=== PATIENT | female | born 1945 | race Hispanic/Latino ===

== ENCOUNTER 2017-04-29 15:15 | Emergency (ER) | payer OTHER, MEDICARE ==
[~2017-04-29 15:15] MED LIST: ADV250 IH; ALBU18HF7 IH; APIX5TAB PO; DEXT1DRO OU; GABA-529 PO; IPRA4AER IH; LANS30CA55 PO; LEFL20TA18 PO; METO50 PO; MONT10TA21 PO; PILO5TAB PO; SIMV40TA59 PO
[2017-04-29 16:05] LABS: BASOPHILS % (AUTO) 0.6 % (0.0-5.0); HEMATOCRIT 36.8 % (36-48); LYMPHOCYTES % (AUTO) 14.6 % (21.0-51.0); MEAN CORPUSCULAR HEMOGLOBIN 29.6 pg (27.0-33.0); MEAN CORPUSCULAR HGB CONC 33.9 g/dL (32.0-36.0); MEAN CORPUSCULAR VOLUME 87.5 fL (79-99); MONOCYTES % (AUTO) 19.7 % (3.0-13.0); NEUTROPHILS % (AUTO) 63.1 % (40.0-77.0); PLATELET COUNT (AUTO) 163 K/uL (130-400); RED CELL DISTRIBUTION WIDTH 14.4 % (11.0-15.5); WHITE BLOOD COUNT (AUTO) 5.3 K/uL (4.8-10.8)
[2017-04-29 16:12] LABS: CREATININE 0.8 mg/dL (0.5-1.5); POTASSIUM 4.2 mmol/L (3.5-5.1)
[2017-04-29] MEDS ORDERED: ACETAMINOPHEN 325 MG TAB ONE (17:46)
[2017-04-29] MEDS ORDERED: BENZONATATE 100 MG CAPSULE PO ONE (18:37)
[2017-04-29] MEDS ORDERED: AZITHROMYCIN 250 MG TABLET PO ONE (19:28)
== END 2017-04-29 19:52 | disposition home or self-care (01) ==
LOC: EDH 15:15
DX: J06.9 Acute upper respiratory infection, unspecified (principal); I10 Essential (primary) hypertension; E78.5 Hyperlipidemia, unspecified; M19.90 Unspecified osteoarthritis, unspecified site; Z88.0 Allergy status to penicillin
CPT/HCPCS: 36415; 71010; 80048; 83605; 85025; 87804

== ENCOUNTER 2017-06-28 15:09 | Emergency (ER) | payer OTHER, MEDICARE ==
[2017-06-28] MEDS ORDERED: MECLIZINE HCL 25 MG TABLET ONE (15:59)
[2017-06-28 16:16] LABS: BILIRUBIN,URINE Negative (NEGATIVE); COLOR,URINE Yellow (YELLOW); GLUCOSE, URINE (UA) Negative (NEGATIVE); KETONES,URINE Negative (NEGATIVE); LEUKOCYTE ESTERASE ,URINE Small (NEGATIVE); NITRATE,URINE Negative (NEGATIVE); OCCULT BLOOD,URINE Negative (NEGATIVE); PROTEIN,URINE Negative (NEGATIVE); UROBILINOGEN,URINE 0.2 mg/dL (0.2-1.0)
[2017-06-28 16:20] LABS: APPEARANCE,URINE CLEAR (CLEAR)
[2017-06-28 16:33] LABS: BASOPHILS % (AUTO) 0.5 % (0.0-5.0); EOSINOPHILS % (AUTO) 0.6 % (0.0-8.0); HEMATOCRIT 41.5 % (36-48); LYMPHOCYTES % (AUTO) 19.5 % (21.0-51.0); MEAN CORPUSCULAR HEMOGLOBIN 30.2 pg (27.0-33.0); MEAN CORPUSCULAR HGB CONC 33.7 g/dL (32.0-36.0); MEAN CORPUSCULAR VOLUME 89.5 fL (79-99); MONOCYTES % (AUTO) 7.3 % (3.0-13.0); NEUTROPHILS % (AUTO) 72.1 % (40.0-77.0); NUCLEATED RED BLOOD CELLS 0.1 % (0.0-0.19); PLATELET COUNT (AUTO) 212 K/uL (130-400); RED BLOOD CELL COUNT(AUTO) 4.64 MIL/uL (4.00-5.50); RED CELL DISTRIBUTION WIDTH 13.8 % (11.0-15.5); WHITE BLOOD COUNT (AUTO) 8.8 K/uL (4.8-10.8)
[2017-06-28 16:43] LABS: CREATININE 0.9 mg/dL (0.5-1.5); POTASSIUM 4.4 mmol/L (3.5-5.1)
[2017-06-28 16:49] LABS: ALBUMIN 3.9 g/dL (3.5-5.0); BILIRUBIN,TOTAL 0.2 mg/dL (0.2-1.0)
[2017-06-28 16:52] LABS: INR 1.01 (0.85-1.15); PARTIAL THROMBOPLASTIN TIME 26.8 SEC (26.3-35.5); PROTHROMBIN TIME 10.6 SEC (9.6-11.6)
[2017-06-28 16:53] LABS: BACTERIA,URINE Rare /HPF (None Seen); RBC,URINE 0-1 /HPF (0-1); SQUAMOUS EPITHELIAL CELL,UR Rare /LPF (0-2)
[2017-06-28 16:59] LABS: B-TYPE NATRIURETIC PEPTIDE 203 pg/mL (0-100)
== END 2017-06-28 17:11 | disposition home or self-care (01) ==
LOC: EDH 15:09
DX: H81.399 Other peripheral vertigo, unspecified ear (principal); M19.90 Unspecified osteoarthritis, unspecified site; E78.5 Hyperlipidemia, unspecified; I10 Essential (primary) hypertension; Z88.0 Allergy status to penicillin; Z90.710 Acquired absence of both cervix and uterus; Z95.0 Presence of cardiac pacemaker; Z98.890 Other specified postprocedural states
CPT/HCPCS: 36415; 80053; 81001; 82550; 83880; 84484; 85025; 85610; 85730; 93005

== ENCOUNTER → 2018-10-17 | Outpatient (CLI) | payer OTHER, MEDICARE | END | disposition home or self-care (01) | LOC: SHCH 12:52 | PROVIDERS: ATTEND Internal Medicine Cardiovascular Disease | DX: I87.2 Venous insufficiency (chronic) (peripheral) (principal) | CPT/HCPCS: 93970 ==

== ENCOUNTER → 2019-07-01 | Outpatient (CLI) | payer OTHER, MEDICARE ==
[~2019-07-01] MED LIST changes: +REGADENOSON 0.4 MG/5 ML PF SYG IVP SCH
== END | disposition home or self-care (01) ==
LOC: SHCH 07:41
PROVIDERS: ATTEND Internal Medicine Cardiovascular Disease
DX: I20.9 Angina pectoris, unspecified (principal)
CPT/HCPCS: 78452; 93017; 96374; A9500 ×2; J2785

== ENCOUNTER → 2019-09-11 | Outpatient (CLI) | payer OTHER, MEDICARE ==
[~2019-09-11] MED LIST changes: -REGADENOSON 0.4 MG/5 ML PF SYG IVP SCH
== END | disposition home or self-care (01) ==
LOC: RAH 08:15
PROVIDERS: ATTEND Internal Medicine Gastroenterology
DX: R10.13 Epigastric pain (principal); K76.0 Fatty (change of) liver, not elsewhere classified
CPT/HCPCS: 76700

== ENCOUNTER 2019-09-17 07:57 | Day surgery (SDC) | payer OTHER, MEDICARE ==
[~2019-09-17] VITALS: Ht 167.6 cm; Wt 78.0 kg
[2019-09-17 07:24] VITALS: BP 163/66
[2019-09-17 07:42] VITALS: BP 140/56
[2019-09-17 07:47] VITALS: BP 144/61
[2019-09-17 07:52] VITALS: BP 140/61
[~2019-09-17 07:57] MED LIST changes: +PROPOFOL 10 MG/ML 20ML VIAL IV ONE; +SODIUM CHLORIDE 0.9% 1000ML 1,000 ML IV ONE
== END 2019-09-17 08:26 | disposition home or self-care (01) ==
LOC: DAH 07:57
PROVIDERS: ATTEND Internal Medicine
DX: R10.13 Epigastric pain (principal); K25.9 Gastric ulcer, unspecified as acute or chronic, without hemorrhage or perforation; K29.70 Gastritis, unspecified, without bleeding; K22.70 Barrett's esophagus without dysplasia; K44.9 Diaphragmatic hernia without obstruction or gangrene; I10 Essential (primary) hypertension; E78.5 Hyperlipidemia, unspecified; M19.90 Unspecified osteoarthritis, unspecified site; I48.0 Paroxysmal atrial fibrillation; Z98.890 Other specified postprocedural states; Z98.891 History of uterine scar from previous surgery; Z79.899 Other long term (current) drug therapy; Z88.0 Allergy status to penicillin; Z95.0 Presence of cardiac pacemaker
CPT/HCPCS: 43239; 88305; 88342; A4215; A4221; A4222; A4223; A4606; A4620; A4663; J2704; J7030

== ENCOUNTER 2021-08-24 11:31 | Emergency (ER) | payer OTHER, MEDICARE ==
[~2021-08-24] VITALS: Ht 165.1 cm; Wt 71.7 kg
[~2021-08-24 11:31] MED LIST changes: -APIX5TAB PO; -PROPOFOL 10 MG/ML 20ML VIAL IV ONE; -SODIUM CHLORIDE 0.9% 1000ML 1,000 ML IV ONE
[2021-08-24] MEDS ORDERED: LORAZEPAM 1 MG TABLET PO SCH (12:00)
[2021-08-24 12:53] VITALS: BP 115/65
== END 2021-08-24 12:54 | disposition home or self-care (01) ==
LOC: EDH 11:31
DX: F41.9 Anxiety disorder, unspecified (principal); E78.00 Pure hypercholesterolemia, unspecified; I10 Essential (primary) hypertension; Z88.0 Allergy status to penicillin; Z79.899 Other long term (current) drug therapy; Z98.890 Other specified postprocedural states

== ENCOUNTER 2022-03-16 16:40 | Emergency (ER) | payer OTHER, MEDICARE ==
[~2022-03-16] VITALS: Ht 165.1 cm; Wt 72.6 kg
[2022-03-16 17:10] LABS: BASOPHILS % (AUTO) 0.7 % (0.0-5.0); EOSINOPHILS % (AUTO) 0.9 % (0.0-8.0); HEMATOCRIT 40.7 % (36-48); LYMPHOCYTES % (AUTO) 28.3 % (21.0-51.0); MEAN CORPUSCULAR HEMOGLOBIN 30.1 pg (27.0-33.0); MEAN CORPUSCULAR HGB CONC 31.9 g/dL (32.0-36.0); MEAN CORPUSCULAR VOLUME 94.2 fL (79-99); MONOCYTES % (AUTO) 9.3 % (3.0-13.0); NEUTROPHILS % (AUTO) 59.9 % (40.0-77.0); PLATELET COUNT (AUTO) 231 K/uL (130-400); RED BLOOD CELL COUNT(AUTO) 4.32 MIL/uL (4.00-5.50); RED CELL DISTRIBUTION WIDTH 13.8 % (11.0-15.5); WHITE BLOOD COUNT (AUTO) 5.8 K/uL (4.8-10.8)
[2022-03-16 17:20] LABS: CREATININE 0.9 mg/dL (0.5-1.5); POTASSIUM 3.8 mmol/L (3.5-5.1)
[2022-03-16 17:29] LABS: ALBUMIN 3.8 g/dL (3.5-5.0); TOTAL PROTEIN, SERUM 7.9 g/dL (6.0-8.3)
[2022-03-16] MEDS ORDERED: ENAL10TA63 PO (18:08)
[2022-03-16] MEDS ORDERED: ENALAPRIL MALEATE 10 MG TABLET PO SCH (18:30)
[2022-03-16 18:31] LABS: APPEARANCE,URINE CLEAR (CLEAR); BILIRUBIN,URINE NEGATIVE (NEGATIVE); COLOR,URINE LIGHT-YELLOW (YELLOW); GLUCOSE, URINE (UA) NEGATIVE (NEGATIVE); KETONES,URINE NEGATIVE (NEGATIVE); LEUKOCYTE ESTERASE ,URINE 75 Leu/uL (NEGATIVE); NITRATE,URINE NEGATIVE (NEGATIVE); OCCULT BLOOD,URINE NEGATIVE (NEGATIVE); PH,URINE 5.5 (5.0-8.0); PROTEIN,URINE NEGATIVE (NEGATIVE); UROBILINOGEN,URINE 0.2 mg/dL (0.2-1.0)
[2022-03-16 18:35] LABS: SQUAMOUS EPITHELIAL CELL,UR RARE /HPF (0-2)
[2022-03-16 19:28] VITALS: BP 159/78
== END 2022-03-16 19:37 | disposition home or self-care (01) ==
LOC: EDH 16:40
DX: I10 Essential (primary) hypertension (principal); I48.91 Unspecified atrial fibrillation; F41.9 Anxiety disorder, unspecified; E78.00 Pure hypercholesterolemia, unspecified; Z88.0 Allergy status to penicillin; Z79.899 Other long term (current) drug therapy; Z98.890 Other specified postprocedural states; Z87.891 Personal history of nicotine dependence
CPT/HCPCS: 36415; 71045; 80053; 81001; 84484; 85025; 87088; 93005

== ENCOUNTER 2022-07-09 13:15 | Emergency (ER) | payer OTHER, MEDICARE ==
[~2022-07-09] VITALS: Ht 160 cm; Wt 72.6 kg
[~2022-07-09 13:15] MED LIST changes: +ENAL10TA63 PO; +MONT-47 PO; -MONT10TA21 PO
[2022-07-09 13:16] VITALS: BP 150/72
[2022-07-09] MEDS ORDERED: TETRACAINE HCL 0.5% 4 ML OPHTH SOLN ONE (16:55)
[2022-07-09] MEDS ORDERED: TETRACAINE HCL 0.5% 4 ML OPHTH SOLN OP SCH (17:00)
== END 2022-07-09 18:24 ==
LOC: EDH 13:15
DX: H57.12 Ocular pain, left eye (principal); I10 Essential (primary) hypertension; E78.00 Pure hypercholesterolemia, unspecified; Z79.899 Other long term (current) drug therapy; Z88.0 Allergy status to penicillin; Z98.890 Other specified postprocedural states

== ENCOUNTER 2022-09-05 17:58 | Emergency (ER) | payer OTHER, MEDICARE ==
[~2022-09-05] VITALS: Ht 165.1 cm; Wt 68.0 kg
[2022-09-05 19:13] LABS: BASOPHILS % (AUTO) 0.6 % (0.0-5.0); EOSINOPHILS % (AUTO) 1.1 % (0.0-8.0); HEMATOCRIT 37.4 % (36-48); LYMPHOCYTES % (AUTO) 27.2 % (21.0-51.0); MEAN CORPUSCULAR HEMOGLOBIN 30.5 pg (27.0-33.0); MEAN CORPUSCULAR HGB CONC 32.9 g/dL (32.0-36.0); MEAN CORPUSCULAR VOLUME 92.8 fL (79-99); NEUTROPHILS % (AUTO) 58.5 % (40.0-77.0); PLATELET COUNT (AUTO) 200 K/uL (130-400); RED BLOOD CELL COUNT(AUTO) 4.03 MIL/uL (4.00-5.50); RED CELL DISTRIBUTION WIDTH 13.6 % (11.0-15.5); WHITE BLOOD COUNT (AUTO) 5.4 K/uL (4.8-10.8)
[2022-09-05 19:23] LABS: CREATININE 0.9 mg/dL (0.5-1.5); POTASSIUM 3.3 mmol/L (3.5-5.1)
[2022-09-05 19:23] LABS: APPEARANCE,URINE CLEAR (CLEAR); BILIRUBIN,URINE NEGATIVE (NEGATIVE); COLOR,URINE LIGHT-YELLOW (YELLOW); GLUCOSE, URINE (UA) NEGATIVE (NEGATIVE); KETONES,URINE NEGATIVE (NEGATIVE); LEUKOCYTE ESTERASE ,URINE 25 Leu/uL (NEGATIVE); NITRATE,URINE NEGATIVE (NEGATIVE); OCCULT BLOOD,URINE NEGATIVE (NEGATIVE); PROTEIN,URINE NEGATIVE (NEGATIVE); UROBILINOGEN,URINE 0.2 mg/dL (0.2-1.0)
[2022-09-05 19:28] LABS: ALBUMIN 3.4 g/dL (3.5-5.0); TOTAL PROTEIN, SERUM 7.1 g/dL (6.0-8.3)
[2022-09-05 19:35] LABS: MUCUS,URINE RARE LPF (None Seen); RBC,URINE 0-1 /HPF (0-1); SQUAMOUS EPITHELIAL CELL,UR RARE /HPF (0-2)
[2022-09-05] MEDS ORDERED: POTASSIUM BICARB/CIT AC 25 MEQ TABLET.EFF PO ONE (21:00)
[2022-09-05] MEDS ORDERED: SULF1TAB42 PO (22:15)
[2022-09-05 22:30] VITALS: BP 143/62
== END 2022-09-05 23:08 | disposition home or self-care (01) ==
LOC: EDH 17:58
DX: N39.0 Urinary tract infection, site not specified (principal); I10 Essential (primary) hypertension; E78.00 Pure hypercholesterolemia, unspecified; F41.9 Anxiety disorder, unspecified; M19.90 Unspecified osteoarthritis, unspecified site; Z79.899 Other long term (current) drug therapy; Z98.890 Other specified postprocedural states; Z88.0 Allergy status to penicillin
CPT/HCPCS: 36415; 74018; 80053; 81001; 83690; 84484; 85025; 93005

== ENCOUNTER → 2024-02-08 | Outpatient (CLI) | payer OTHER, MEDICARE ==
[~2024-02-08] MED LIST changes: -LEFL20TA18 PO; +LEFL20TA22 PO; +SULF1TAB42 PO
== END | disposition home or self-care (01) ==
LOC: SHCH 09:02
PROVIDERS: ATTEND Internal Medicine Cardiovascular Disease
DX: I42.0 Dilated cardiomyopathy (principal)
CPT/HCPCS: 93306

== ENCOUNTER 2024-06-12 05:32 | Day surgery (SDC) | payer OTHER, MEDICARE ==
--- NOTE | 2024-06-10 10:01 | EKG ---
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
[2024-06-10 10:10] LABS: BASOPHILS # (AUTO) 0.03 K/uL (0.00-0.20); BASOPHILS % (AUTO) 0.6 % (0.0-5.0); EOSINOPHILS # (AUTO) 0.14 K/uL (0.00-0.70); EOSINOPHILS % (AUTO) 2.7 % (0.0-8.0); IMMATURE GRANULOCYTE ABSOLUTE 0.01 K/uL (0-1); LYMPHOCYTES # (AUTO) 1.2 K/uL (1.0-4.8); MEAN CORPUSCULAR HEMOGLOBIN 29.2 pg (27.0-33.0); MEAN CORPUSCULAR HGB CONC 31.5 g/dL (32.0-36.0); MEAN CORPUSCULAR VOLUME 92.9 fL (79-99); MONOCYTES # (AUTO) 0.8 K/uL (0.1-1.0); MONOCYTES % (AUTO) 14.9 % (3.0-13.0); NEUTROPHILS # (AUTO) 3.1 K/uL (1.8-7.7); NEUTROPHILS % (AUTO) 59.6 % (40.0-77.0); PLATELET COUNT (AUTO) 220 K/uL (130-400); RED BLOOD CELL COUNT(AUTO) 3.66 MIL/uL (4.00-5.50); RED CELL DISTRIBUTION WIDTH 14.9 % (11.0-15.5); WHITE BLOOD COUNT (AUTO) 5.2 K/uL (4.8-10.8)
[2024-06-10 10:23] LABS: INR 0.97 (0.85-1.15); POTASSIUM 5.4 mmol/L (3.5-5.1); PROTHROMBIN TIME 10.9 SEC (9.6-11.6)
[2024-06-10 10:24] LABS: PARTIAL THROMBOPLASTIN TIME 26.8 SEC (26.3-35.5)
[2024-06-10 10:59] VITALS: BP 143/63; PULSE 60; RESP 12; TEMP 98.1
--- NOTE | 2024-06-10 13:36 | NUR ---
report dr ramesh informed pt held xarelto for 4 days. ok to proceed
--- NOTE | 2024-06-11 16:00 | NUR ---
report reported potassium and H&H to Dr Montoya. received orders to repeat potassium in am
[2024-06-12] VITALS (8 sets, daily range): BP systolic 125–148; BP diastolic 43–65; PULSE 57–78; RESP 14–18; TEMP 97–97.8
[~2024-06-12] VITALS: Ht 160 cm; Wt 72.5 kg
[~2024-06-12 05:32] MED LIST changes: -ADV250 IH; -ALBU18HF7 IH; +ALEN70TA80 PO; -DEXT1DRO OU; +DICY-20 PO; +DOMPERIDONE PO; -ENAL10TA63 PO; +FAMO40TA7 PO; -GABA-529 PO; +HYDR200T75 PO; -IPRA4AER IH; -LANS30CA55 PO; +LINA290C PO; +LOSA50TA64 PO; +MECL-244 PO; -MONT-47 PO; +NITR0.4T SL; -PILO5TAB PO; +RIVA20TA PO; +ROPI0.2535 PO; +ROSU10TA72 PO; -SIMV40TA59 PO; -SULF1TAB42 PO; +TRAM-543 PO; +VOLTAREN TP
[2024-06-12] MEDS: 0.9%NACL 1000ML 1,000 ML IV SCH (06:39)
[2024-06-12] MEDS ORDERED: LIDOCAINE HCL 1% MDV 50ML VIAL ONE (07:17)
[2024-06-12] MEDS ORDERED: ceFAZolin SODIUM 1 GM VIAL ONE (07:17)
[2024-06-12] MEDS ORDERED: BUPIvacaine/PF 0.25% 30ML VIAL IJ ONE (07:17)
[2024-06-12] MEDS ORDERED: VANCOMYCIN 1G/250ML KIT 500 ML IV ONE (07:29)
[2024-06-12] MEDS ORDERED: MEPERIDINE-PF 50 MG/ML SYG ONE ×5 (07:36→15:06)
[2024-06-12] MEDS ORDERED: MIDAZOLAM HCL 1 MG/ML 2ML VIAL ONE ×9 (07:36→15:06)
[2024-06-12] MEDS ORDERED: IODIXANOL 320 MG/ML 100 ML VIAL ONE (07:44)
[2024-06-12] MEDS ORDERED: BACITRACIN 1 EACH PACKET TP ONE (15:35)
[2024-06-12] MEDS ORDERED: acetaMINOPHEN WITH coDEINE 1 TAB TAB PO PRN (16:00)
[2024-06-12] MEDS ORDERED: acetaMINOPHEN 500 MG TABLET PO PRN (16:00)
--- NOTE | 2024-06-12 16:20 | NUR ---
SPOKE WITH DR. NEGRETE ABOUT DISCHARGING PT, WAS TOLD OK TO DISCHARGE WHEN PT IS AWAKE AND VSS.
--- NOTE | 2024-06-12 16:25 | NUR ---
AFTER SPEAKING WITH FAMILY DR. NEGRETE STATED OK TO DISCHARGE PT HOME. VSS NAD
[2024-06-12] MEDS: ondanSETRON 4MG TABLET ONE (18:17)
[2024-06-12] MEDS: ondanSETRON 4MG INJ ONE (18:29)
[2024-06-12] MEDS ORDERED: ondanSETRON 4MG TABLET PO ONE (18:30)
[2024-06-12] MEDS ORDERED: ondanSETRON 4MG INJ IVP ONE (18:30)
== END 2024-06-12 18:49 | disposition home or self-care (01) ==
LOC: DAH 05:32
PROVIDERS: ATTEND Internal Medicine Cardiovascular Disease
DX: I25.5 Ischemic cardiomyopathy (principal); I11.0 Hypertensive heart disease with heart failure; I50.22 Chronic systolic (congestive) heart failure; I44.2 Atrioventricular block, complete; I48.21 Permanent atrial fibrillation; R06.09 Other forms of dyspnea; I49.5 Sick sinus syndrome; E66.9 Obesity, unspecified; Z90.710 Acquired absence of both cervix and uterus; Z98.890 Other specified postprocedural states; Z88.0 Allergy status to penicillin; Z68.26 Body mass index [BMI] 26.0-26.9, adult; Z95.810 Presence of automatic (implantable) cardiac defibrillator; Z79.899 Other long term (current) drug therapy
CPT/HCPCS: 80048; 85025; 85610; 85730; 36415 ×2; 93005; 33264; 84132; 82948 ×2; C1769 ×5; C1894; C1898 ×2; C1882; C1887; J7030; J0665; J2250 ×9; J2405; J3370; J2175 ×5; J3490; Q9967; A4215; A4222; A4221; A4663; A4216; A4606; A4223 ×3; 99156; 99157; J0690; Q0162

== ENCOUNTER → 2024-08-12 | Outpatient (CLI) | payer OTHER, MEDICARE ==
--- NOTE | 2024-08-13 11:10 | HMCSR ---
APPROVED REPORT EXAM: Two-dimensional and M-mode echocardiogram with Doppler and color Doppler. 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 2D Dimensions RVDd4.9 cmLVEF(%)53.0 (>50%)LVED Vol(simp.)52.0 mL IVSd1.1 (0.7-1.1cm)FS(%)28 %LVES Vol(simp.)104.0 mL LVDd5.7 (3.8-5.6cm)Ao Root(2D)2.7 (2.0-3.7cm)LVEF(%, simp.)50 % PWd1.1 (0.7-1.1cm)LVOT diam2.1 (1.8-2.4cm)LA ESV INDEX (BP)55.39 mL/m2 LVDs4.1 (2.5-4.0cm)IVC diam2.0 cm M-Mode Dimensions EPSS1.4 cm Aortic Valve AoV Vmax2.2 m/Jonathan Peak GR20.2 mmHgLVOT Vmax0.8 m/s AoV VTI0.5 mAo Mean GR11.8 mmHgLVOT VTI0.18 m BEN (VMAX)1.2 cm2Al P1/2T615 msAVA (VTI) 1.2 cm2 Mitral Valve MV E Vmax90.1 cm/sDECEL Ihxh511 msMV Peak GR3 mmHg MV A Vmax49.0 cm/sP 1/2 T61 msMV Mean GR1 mmHg E/A ratio1.8MVA (PHT)3.6 cm2MVA (VTI)2.3 cm2 MR Max PG111 mmHgMR Mean PG70 mmHgMR WVZ668 cm2 TDI E/E' Pilbal31.6E/E' Lateral8.2 Pulmonary Valve PV Vmax0.7 m/sPV VTI0.16 mPV Mean GR1 mmHg PV Peak GR2.2 mmHgPI End Saida. Juan 1.1 cm/s Tricuspid Valve TR Vmax3.4 m/sRAP (EST) 15 qoTgAHOX25.7 mmHg TR Peak GR45.7 mmHg Left Ventricle The left ventricle is borderline dilated. Severe apical hypokinesis noted There is mild concentric le ft ventricular hypertrophy. LVEF is 50%. Indeterminate diastolic dysfunction. Right Ventricle The right ventricle is dilated. Right ventricular systolic function is reduced. Atria The left atrium is severely dilated. The right atrium is dilated. Aortic Valve Aortic valve is trileaflet. Aortic valve leaflets are thickened and calcified. Moderate aortic regurg itation. Calculated aortic valve area is 1.8 cm2 with maximum pressure gradient of 20.2 mmHg and mean pressure gradient of 11.8 mmHg. Mitral Valve Mitral valve leaflets are sclerotic but open well. Mitral regurgitation is moderate to severe. There is no mitral valve stenosis. Tricuspid Valve The tricuspid valve leaflets appear normal. There is severe tricuspid regurgitation. Right ventricula r systolic pressure is estimated at greater than 60 mmHg. Pulmonic Valve The pulmonic valve leaflets appear normal. There is mild valvular regurgitation. Great Vessels The aortic root is normal in size. IVC is dilated and collapses <50% with inspiration. Pericardium No pericardial effusion. Conclusion LVEF is 50%. Severe apical hypokinesis noted Right ventricular systolic function is reduced. The left atrium is severely dilated. The right atrium is dilated. Aortic valve is trileaflet. Aortic valve leaflets are thickened and calcified. Moderate aortic regurgitation. Calculated aortic valve area is 1.8 cm2 with maximum pressure gradient of 20.2 mmHg and mean pressure gradient of 11.8 mmHg. Mitral valve leaflets are sclerotic but open well. Mitral regurgitation is moderate to severe. There is severe tricuspid regurgitation. Right ventricular systolic pressure is estimated at greater than 60 mmHg. The aortic root is normal in size.
== END | disposition home or self-care (01) ==
LOC: SHCH 10:30
PROVIDERS: ATTEND Internal Medicine Cardiovascular Disease
DX: I08.3 Combined rheumatic disorders of mitral, aortic and tricuspid valves (principal)
CPT/HCPCS: 93306

== ENCOUNTER 2025-03-17 11:46 | Emergency (ER) | payer OTHER, MEDICAID ==
[~2025-03-17] VITALS: Ht 165.1 cm; Wt 73.7 kg
[~2025-03-17 11:46] MED LIST changes: -ROSU10TA72 PO; +ROSU10TA98 PO
--- NOTE | 2025-03-17 12:14 | ERN ---
ED Note History of Present Illness Stated Complaint: SOB W/ EXERTION Chief Complaint: Shortness of Breath Time Seen by MD: 11:49 Time Seen by Midlevel: 11:53 Dictation: 79-year-old female with a history of hypertension, diabetes, cholesterol, rheumatoid arthritis coming in with complaints of shortness a breath onset for the last 3-4 days. Patient states pain is worse on exertion or when she lays down. Patient states she used to take a diuretic but they removed it a couple of weeks ago. Allergies: Coded Allergies: Penicillins (Unverified Allergy, Severe, HIVES, 05/24/13) Home Meds Active Scripts Metoprolol Tartrate (Lopressor 50Mg Tab) 50 Mg Tab, 50 MG PO BID, #60 TAB Prov:PASTORA DUBON MD 08/27/15 Reported Medications Nitroglycerin (Nitrostat) 0.4 Mg Tab.subl, 0.4 MG SL AD PRN for CHEST PAIN, TAB.SL 06/10/24 [Voltaren] No Conflict Check, 1 APPL TP AD PRN for PAIN 06/10/24 [Domperidone] No Conflict Check, 10 MG PO AM 06/10/24 Dicyclomine HCl (Dicyclomine HCl) 10 Mg Capsule, 10 MG PO BID PRN for PAIN, CAP 06/10/24 Meclizine HCl (Motion Sickness) 25 Mg Tablet, 25 MG PO BID PRN for NAUSEA/VOMITING, TAB 06/10/24 Ropinirole HCl (Ropinirole HCl) 0.25 Mg Tablet, 1 TAB PO BID 06/10/24 Tramadol HCl/Acetaminophen (Tramadol-Acetaminophn 37.5-325) 37.5 Mg-325 Mg Tablet, 1 TAB PO BID PRN for PAIN 06/10/24 Linaclotide (Linzess) 290 Mcg Capsule, 1 TAB PO DAILY PRN for CONSTIPATION 06/10/24 Rivaroxaban (Xarelto) 20 Mg Tablet, 1 TAB PO HS 06/10/24 Alendronate Sodium (Alendronate Sodium) 70 Mg Tablet, 1 TAB PO WEEKLY 06/10/24 Losartan Potassium (Losartan Potassium) 50 Mg Tablet, 1 TAB PO DAILY 06/10/24 Famotidine (Famotidine) 40 Mg Tablet, 1 TAB PO HSPRN PRN for HEARTBURN 06/10/24 Hydroxychloroquine Sulfate (Hydroxychloroquine Sulfate) 200 Mg Tablet, 1 TAB PO DAILY 06/10/24 Rosuvastatin Calcium (Rosuvastatin Calcium) 10 Mg Tablet, 1 TAB PO HS 06/10/24 Leflunomide (Leflunomide) 20 Mg Tablet, 20 MG PO HS, TAB 08/23/15 Past Medical History Past Medical History: Anxiety, Arthritis, High Cholesterol, Heart Disease, Hypertension Surgical History: Pacer/AICD, Surgical History Other: RIGHT KNEE Social History: Lives with family, Other Review of System Dictation Constitutional: Negative for fever,chills, and weight loss Eyes: Negative for injury, pain,redness, and discharge ENT: Negative for injury,pain or swelling Cardiovascular: Negative for chest pain, palpitations, and edema Respiratory: Complaining of shortness a breath Abdomen/GI: Negative for abdominal pain, nausea, vomiting, diarrhea, and constipation Back: Negative for injury and pain : Negative for injury, bleeding and discharge MS/Extremity: Negative for injury and deformity Skin: Negative for rash, and discoloration Neuro: Negative for headache, weakness, numbness, tingling, and seizure Psych: Negative for suicide ideation, homicidal ideation, and hallucinations Review of Systems: was completed Initial Vital Sign VS Vital Signs Date Time Temp Pulse Resp B/P (MAP) Pulse Ox O2 Delivery O2 Flow Rate FiO2 03/17/25 11:48 97.9 66 16 167/40 100 Room Air 0 03/17/25 14:08 21 Physical Exam Dictation General: awake, alert, NAD Head/Face: Normocephalic, atraumatic Eyes: PERRL, EOMI, vision at baseline, periorbital edema ENT: oral cavity clear, TMs clear, no signs of infection Neck: Trachea midline, supple, no nuchal rigidity Cardiovascular: RRR, normal S1/S2, No MRGs, no JVD Respiratory: CTAB, no respiratory distress, No rales or wheezes Abdomen: Soft, non-tender, non-distended, normal bowel sounds, no guarding or rebound. Skin: Warm, dry, normal turgor, no rash MS/Extremity: Pulses equal, no cyanosis, neurovascular intact, FROM Neuro: COAx4, GCS 15, strength 5/5, CN 2-12 intact, normal cerebellar exam, normal gait, Psych: Normal behavior, mood, and affect normal Results (Laboratory/Radiology) Laboratory/Radiology Laboratory Tests Test 03/17/25 12:11 White Blood Count 7.4 K/uL (4.8-10.8) Red Blood Count 2.54 MIL/uL (4.00-5.50) L Hemoglobin 7.9 g/dL (12.0-16.0) L Hematocrit 26.4 % (36-48) L Mean Corpuscular Volume 103.9 fL (79-99) H Mean Corpuscular Hemoglobin 31.1 pg (27.0-33.0) Mean Corpuscular Hemoglobin Concent 29.9 g/dL (32.0-36.0) L Red Cell Distribution Width 18.3 % (11.0-15.5) H Platelet Count 203 K/uL (130-400) Mean Platelet Volume 10.9 fL (7.5-10.5) H Immature Granulocyte % (Auto) 0.4 % (0-1) Neutrophils (%) (Auto) 66.3 % (40.0-77.0) Lymphocytes (%) (Auto) 17.5 % (21.0-51.0) L Monocytes (%) (Auto) 13.4 % (3.0-13.0) H Eosinophils (%) (Auto) 1.9 % (0.0-8.0) Basophils (%) (Auto) 0.5 % (0.0-5.0) Neutrophils # (Auto) 4.9 K/uL (1.8-7.7) Lymphocytes # (Auto) 1.3 K/uL (1.0-4.8) Monocytes # (Auto) 1.0 K/uL (0.1-1.0) Eosinophils # (Auto) 0.14 K/uL (0.00-0.70) Basophils # (Auto) 0.04 K/uL (0.00-0.20) Absolute Immature Granulocyte (auto 0.03 K/uL (0-1) Nucleated Red Blood Cells 0.0 % (0.0-0.19) Red Blood Cell Morphology See comments Sodium Level 139 mmol/L (136-145) Potassium Level 5.3 mmol/L (3.5-5.1) H Chloride Level 111 mmol/L (101-111) Carbon Dioxide Level 17 mmol/L (21-32) L Blood Urea Nitrogen 26 mg/dL (7-18) H Creatinine 1.1 mg/dL (0.5-1.0) H Glomerular Filtration Rate Calc 51 mL/min (>90) Random Glucose 129 mg/dL (70-105) H Total Calcium 8.4 mg/dL (8.5-10.1) L Troponin I High Sensitivity 14 ng/L (4-50) B-Type Natriuretic Peptide 442 pg/mL (0-100) H Labs Reviewed?: Yes EKG Comment: EKGs done at 11:53 a.m.. Rate 54, ventricular paced rhythm. No STEMI interpreted by ER MD X-RAY Comment: [facility] [address] [place] [id number] IMAGING REPORT Signed PATIENT: SOFIYA KNAPP MR#: [id number] : 1945 SEX: F AGE: 79 LOCATION: [facility] ORDER 115 STATUS: REG ER REPORT#: [id number] SERVICE [id number] REASON: sob ORDERING PHYSICIAN: GEOVANNY DIEZ CNP PROCEDURE: CXR1VW - CHEST 1VW EXAM: CR Chest, 1 View. CLINICAL HISTORY: sob COMPARISON: None provided. FINDINGS: LUNGS: The lungs show no infiltrate or other acute finding. PLEURAL SPACES: No evidence of pleural effusion or pneumothorax. MEDIASTINUM: Cardiac size and mediastinal contours within normal limits. Pacemaker leads are in satisfactory positions. BONES: No acute osseous abnormality. IMPRESSION: No acute cardiopulmonary pathology is evident. /[place] DICTATED BY: KATIANA BOCANEGRA Jr., MD DATE: 03/17/251428 ELECTRONICALLY SIGNED BY: KATIANA BOCANEGRA Jr., MD DATE: 03/17/251428 ED Course ED Course Orders Procedure Category Date Status Time Cbc With Differential LAB 03/17/25 Complete 11:54 Basic Metabolic Panel LAB 03/17/25 Complete 11:54 B-Type Natriuretic LAB 03/17/25 Complete Peptide 11:54 Troponin I High LAB 03/17/25 Complete Sensitivity 11:54 12 Lead Ekg Tracing- EKG 03/17/25 Resulted Technical 11:54 Chest 1vw RAD 03/17/25 Resulted 11:54 Furosemide 40 Mg PHA 03/17/25 Verified Tablet (Lasix 40mg 14:30 Vital Signs Date Time Temp Pulse Resp B/P (MAP) Pulse Ox O2 Delivery O2 Flow Rate FiO2 03/17/25 14:08 68 14 162/58 100 Room Air* 0 21 03/17/25 11:48 97.9 66 16 167/40 100 Room Air 0 Medical Decision Making MDM MDM: 79-year-old female with a history of hypertension, diabetes, cholesterol, rheumatoid arthritis coming in with complaints of shortness a breath onset for the last 3-4 days. Patient states pain is worse on exertion or when she lays down. Patient states she used to take a diuretic but they removed it a couple of weeks ago.CBC shows no leukocytosis, anemia 7.9 and hematocrit of 26. No thrombocytopenia. Chemistry shows mild elevation in creatinine of 1.1 and BUN of 26. Hyperkalemia at 5.3. Lokelma given in the emergency room. And BNP of 442. Troponin is negative. I was going to admit the patient for IV diuresis, p atient refused to be admitted, states she rather go see her primary care doctor tomorrow morning. Discussed patient is a benefits of being admitted and getting seen here by PCP and possibly her front desk auxiliary. Patient states last time she was admitted they told her she was going to get seen by Cardiology and she had to stay for a week in the hospital and does not want to do that again. Discussed Possible complications including patient. Patient verbalized understanding and still does not want to be admitted. Offered patient IV Lasix before discharge, patient refused IV placement. Differential diagnosis: Fluid overload, CHF exacerbation, kidney failure Rationale: Tests considered and ordered secondary to shared decision making include: labs, ECG and radiology Previous outside records reviewed: Old ER visits. Risk of complication and/or morbidity or mortality of patient management: None Medications-Per medication reconciliation Need for hospitalization: Patient does meet criteria for hospitalization. Need for emergency major/minor surgery: No There are no social concerns with this patient. Prescription drug management Prescriptions will include symptomatic care Patient's prior external medical records from other ER visits were reviewed by me as indicated. Prior testing and results from previous visits were reviewed. Prior tests were taken into account with medical decision making and resource utilization, independent historian/historians were used to obtain complete medical history. I independently interpreted the test that were performed, results were reviewed by me and considered findings on radiology if ordered. Medical management and examination interpretation discussions were had by me with other qualified healthcare professionals as indicated for the patient's care. DX & DISP Disposition: Discharge Decision to Admit Date: Mar 17, 2025 Departure Impression: Primary Impression: Hyperkalemia Additional Impressions: Elevated brain natriuretic peptide (BNP) level, CHF exacerbation Condition: Stable Scripts Sodium Zirconium Cyclosilicate (Lokelma) 10 Gram Powd.pack 1 PACKET PO DAILY for 3 Days, #3 PACKET 0 Refills Prov: GEOVANNY DIEZ CNP 03/17/25 Additional Instructions: porfavor de seguir con shannon doctor de cabesera o cardiologo. Porfor regresar si los symtomas empeoran. Referrals: KWABENA BOLTON MD (PCP) Time of Disposition: 14:33 I have reviewed the case, and I agree with, Diagnosis and Plan GEOVANNY DIEZ CNP Mar 17, 2025 12:14
[2025-03-17 12:19] LABS: IMMATURE GRANULOCYTE ABSOLUTE 0.03 K/uL (0-1); NUCLEATED RED BLOOD CELLS 0.0 % (0.0-0.19); PLATELET COUNT (AUTO) 203 K/uL (130-400); RED BLOOD CELL COUNT(AUTO) 2.54 MIL/uL (4.00-5.50); RED CELL DISTRIBUTION WIDTH 18.3 % (11.0-15.5); WHITE BLOOD COUNT (AUTO) 7.4 K/uL (4.8-10.8)
[2025-03-17 12:30] LABS: CREATININE 1.1 mg/dL (0.5-1.0); GLOMERULAR FILTR. RATE CALC 51.0 mL/min (>90); GLUCOSE,RANDOM 129.0 mg/dL (70-105); SODIUM SERUM 139.0 mmol/L (136-145); UREA NITROGEN, BLOOD 26.0 mg/dL (7-18)
--- NOTE | 2025-03-17 12:50 | EKG ---
[facility] Test Date: 2025-03-17 Test Time: 11:53:31 Pat Name: SOFIYA KIMRERA Department: [facility] Room: Gender: F Decontaminator: [id number] : 1945 Requested By: GEOVANNY DIEZ Order Number: [id number] Reading MD: Sophia Tenorio Measurements Intervals [place] Rate: 54 P: 0 GA: 165 QRS: -55 QRSD: 152 T: 96 QT: 0 QTc: 0 Interpretive Statements Ventricular-paced rhythm Compared to ECG 06/10/2024 10:47:08 No significant changes Electronically Signed On 03-17-2025 13:49:27 LEAKAGE TESTER by Sophia Tenorio Please click the below link to view image of tracing.
--- NOTE | 2025-03-17 13:30 | HMCIMG ---
EXAM: CR Chest, 1 View. CLINICAL HISTORY: sob COMPARISON: None provided. FINDINGS: LUNGS: The lungs show no infiltrate or other acute finding. PLEURAL SPACES: No evidence of pleural effusion or pneumothorax. MEDIASTINUM: Cardiac size and mediastinal contours within normal limits. Pacemaker leads are in satisfactory positions. BONES: No acute osseous abnormality. IMPRESSION: No acute cardiopulmonary pathology is evident. /[place]
--- NOTE | 2025-03-17 14:12 | NUR ---
PT DECLINES ADMISSIION AND IV MEDICATIONS. 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 CHANGING MED ORDERS TO PO ONES AND GETTING HER DISCHARGE READY.
[2025-03-17] MEDS ORDERED: SODI10PO2 PO (14:33)
[2025-03-17] MEDS: NA ZIRCON CYCLOSIL(LOKELMA 10GM) PO ONE (14:48)
[2025-03-17 15:00] VITALS: BP 165/60; PULSE 70; RESP 16; TEMP 98; O2SAT 98
== END 2025-03-17 15:00 | disposition home or self-care (01) ==
LOC: EDH 11:46
DX: E87.5 Hyperkalemia (principal); I11.0 Hypertensive heart disease with heart failure; I50.9 Heart failure, unspecified; E78.00 Pure hypercholesterolemia, unspecified; M19.90 Unspecified osteoarthritis, unspecified site; Z79.69 Long term (current) use of other immunomodulators and immunosuppressants; Z79.899 Other long term (current) drug therapy; Z88.0 Allergy status to penicillin; Z95.810 Presence of automatic (implantable) cardiac defibrillator
CPT/HCPCS: 36415; 71045; 80048; 83880; 84484; 85025; 93005; 99285